=== PATIENT | female | born 1995 | race Caucasian/White ===

== ENCOUNTER 2018-01-08 13:58 | Emergency (ER) | payer MEDICAID ==
[2018-01-08 14:05] VITALS: BP 148/79
--- NOTE | 2018-01-08 14:37 | EDPHY ---
H & P Time Seen by Provider: 01/08/18 14:13 HPI/ROS: CHIEF COMPLAINT: Cheerleading fall HISTORY OF PRESENT ILLNESS: The patient is a 22-year-old female presents emergency department with thoracic spine and upper back pain. The patient states that she fell yesterday while practicing cheerleading. 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 She fell to the ground landing on her bottom. It was a padded mat. She subsequently complains of thoracic midline spine pain and bilateral upper back pain. The patient has no numbness or weakness. No radiation of pain. No neck pain. No tailbone pain. REVIEW OF SYSTEMS: 10 systems were reveiwed and are negative with the exception of the elements mentioned in the history of present illness. Past Medical/Surgical History: Denies Smoking Status: Never smoked Physical Exam: Vitals noted GENERAL: Well-appearing, in no acute distress, alert. HEENT: Eyes normal to inspection, normal pharynx, no signs of dehydration. NECK: Normal, supple. No spinal tenderness. Nexus negative. RESPIRATORY: Clear to auscultation bilaterally, no rales, rhonchi or wheezing. CVS: Regular rate and rhythm, no rubs, murmurs, or gallops. ABDOMEN: Soft, nontender, nondistended, no organomegaly. BACK: Patient has thoracic spine tenderness to palpation. This is mild. There is no deformity. No swelling. Patient also has bilateral the thoracic back pain. Is mildly tender. It seems track along the trapezius. Normal to inspection, no CVA tenderness. SKIN: Normal color, no rash, warm, dry. No pallor. EXTREMITIES: No pedal edema, no calf tenderness, no Homans sign or cords, no joint swelling. NEURO/PSYCH: Alert and oriented, normal mood and affect, normal motor sensory exam. No obvious cranial nerve deficit. Constitutional: Initial Vital Signs Temperature (C) 36.9 C 01/08/18 14:03 Heart Rate 99 01/08/18 14:03 Respiratory Rate 16 01/08/18 14:03 Blood Pressure 148/79 H 01/08/18 14:03 O2 Sat (%) 96 01/08/18 14:03 O2 Delivery Mode Room Air Allergies/Adverse Reactions: No Known Allergies Allergy (Unverified 10/16/18 14:02) Home Medications: Medication Instructions Recorded Cyclobenzaprine 01/08/18 Cyclobenzaprine [Flexeril] 10 mg PO TID #15 tab 01/08/18 Ibuprofen 600 mg PO TID #12 tablet 01/08/18 Medical Decision Making ED Course/Re-evaluation: In the emergency department I discussed possible etiologies with the patient. I answered all her questions. I also discussed case with the patient's mother. I discussed imaging options. At this time she had minimal tenderness on her thoracic spine. She may have a subtle compression fracture but I do not think she has a major fracture. I discussed the risks of x-ray images. At this time she will be treated conservatively with anti-inflammatory medicine and muscle relaxers. She continues to have discomfort she will have further imaging. I do not feel the patient needs MRI imaging. She has no focal neurologic deficits. I discussed the possibility of disc herniation. Differential Diagnosis: Includes musculoskeletal strain, disc herniation, spinal fracture, dislocation, epidural hematoma Departure - Departure Disposition: Home, Routine, Self-Care Clinical Impression: Acute thoracic back pain Qualifiers: Back pain laterality: midline Qualified Code(s): M54.6 - Pain in thoracic spine Condition: Good Instructions: Back Pain (ED) Additional Instructions: Return with increasing pain, weakness, numbness or any other concerns. You will be treated with anti-inflammatory medicine and muscle relaxers. You been given follow-up with Neurosurgery (Dr. Mendze) if you have ongoing back pain. You have also been given follow-up with Dr. Norman who is a chiropractor Referrals: GUNNAR ALCALA [Other] - 5-7 days, call for appt. LOR NORMAN [Non Staff and Non MD] - 5-7 days, if not improved Germán Mendez MD [Medical Doctor] - As per Instructions Prescriptions: Cyclobenzaprine [Flexeril] 10 mg PO TID #15 tab Ibuprofen 600 mg PO TID #12 tablet
== END 2018-01-08 14:59 | disposition home or self-care (01) ==
DX: M54.6 Pain in thoracic spine (principal); W01.198A Fall on same level from slipping, tripping and stumbling with subsequent striking against other object, initial encounter; Y93.45 Activity, cheerleading; Y92.9 Unspecified place or not applicable

== ENCOUNTER 2018-01-24 22:40 | Emergency (ER) | payer MEDICAID ==
[2018-01-24] MEDS ORDERED: ACETAMINOPHEN 500 MG TAB PO ONE (23:02)
--- NOTE | 2018-01-24 23:02 | EDPHY ---
H & P Time Seen by Provider: 01/24/18 22:49 HPI/ROS: CHIEF COMPLAINT: Headache and mid back pain HISTORY OF PRESENT ILLNESS: Patient is a 22-year-old female who was at [facility] this evening and was dropped while performing each year. She states that she landed on her mid back has had pain there since. She denies any shortness of breath. She does not think she hit her head but she is uncertain. She does report having headache. There was no loss of consciousness. She denies any neck pain or arm paresthesias. She denies any leg weakness or trouble walking. She was seen here approximately 2-3 weeks ago and had a similar event where she fell and had pain in the same location. She has not followed up in for any further imaging. ROS As detailed in HPI Smoking Status: Never smoked Physical Exam: General: Alert and oriented. Nontoxic appearing. No acute distress Head: No signs of skull fracture including no raccoon eyes or Rodriguez signs. Neck: No midline cervical spine tenderness. No step-offs. Full range of motion without pain. Equal strength sensation and range of motion of the upper extremities HEENT: Pupils PERRLA. No oral lesions. Back: Tenderness to the thoracic spinous processes without step-off or crepitus. No skin lesions. Chest: Lungs clear to auscultation bilaterally. No respiratory distress. Cardiopulmonary: Regular rate and rhythm. No lower extremity edema Skin: Benson warm and dry. No lesions. Muscle skeletal: Moving all 4 extremities. Equal strength in upper extremities and lower extremities. Ambulatory. Constitutional: Initial Vital Signs Temperature (C) 36.8 C 01/24/18 22:45 Heart Rate 81 01/24/18 22:45 Respiratory Rate 18 01/24/18 22:45 Blood Pressure 108/94 H 01/24/18 22:45 O2 Sat (%) 93 01/24/18 22:45 O2 Delivery Mode Room Air Allergies/Adverse Reactions: No Known Allergies Allergy (Unverified 01/24/18 22:44) Home Medications: Medication Instructions Recorded Cyclobenzaprine 01/08/18 Cyclobenzaprine [Flexeril] 10 mg PO TID #15 tab 01/08/18 Ibuprofen 600 mg PO TID #12 tablet 01/08/18 Medical Decision Making - Diagnostics Imaging Results: Imaging Impressions Thoracic Spine X-Ray 01/24/18 23:00 Impression: Slightly limited visualization of the upper thoracic spine with no acute osseous findings. If pain persists or clinical suspicion warrants, consider CT or MRI. ED Course/Re-evaluation: 22-year-old female here with headache and upper back pain after being dropped wall at [facility]. She shows no signs of skull fracture in is alert and oriented Cynthia no indication for head CT at this time. She does have some significant tenderness over the upper thoracic spine is a x-rays obtained which showed no acute fracture. She has no midline cervical spine tenderness so no imaging the cervical spine was obtained. She was given Tylenol and her pain resolved. We discussed appropriate follow-up and when to return to play. Differential Diagnosis: Fracture, pneumothorax, cervical spine injury, cord compression - Data Points Medications Given: Discontinued Medications Acetaminophen (Tylenol) 1,000 mg PO EDNOW ONE Stop: 01/24/18 23:03 Last Admin: 01/24/18 23:54 Dose: 1,000 mg Departure - Departure Disposition: Home, Routine, Self-Care Clinical Impression: Contusion of back wall of thorax Condition: Good Instructions: Contusion in Adults (ED) Additional Instructions: Please follow up with her primary care physician in the next 2-3 days via persistent pain. Please do not return to practice into your pain-free. Developed any worsening symptoms return to the ER for further evaluation. Referrals: GUNNAR ALCALA MD [Other] - As per Instructions
[2018-01-25 00:37] VITALS: BP 107/68
== END 2018-01-25 00:35 | disposition home or self-care (01) ==
DX: S20.229A Contusion of unspecified back wall of thorax, initial encounter (principal); W17.89XA Other fall from one level to another, initial encounter; Y93.45 Activity, cheerleading